=== PATIENT | male | born 1985 | race African-American/Black ===

== ENCOUNTER 2016-11-23 12:25 | Inpatient (IN) | payer OTHER ==
[~2016-11-23] VITALS: Ht 170.2 cm; Wt 60.0 kg
[2016-11-23 12:31] VITALS: BP 155/67; PULSE 94; RESP 18; TEMP 102.9; O2SAT 100
[2016-11-23] MEDS ORDERED: ACETAMINOPHEN 325 MG TAB PO ONE (13:00)
[2016-11-23] MEDS ORDERED: SODIUM CHLOR 0.9% 1000 ML INJ 1,000 ML IV ONE (13:00)
[2016-11-23 13:37] LABS: AUTOMATED NEUTROPHIL # 1.8 TH/MM3 (1.8-7.7); BASOPHIL % 0.4 % (0.0-2.0); EOSINOPHIL % 0.3 % (0.0-4.0); HEMATOCRIT 36.3 % (39.0-51.0); LYMPH % 29.6 % (9.0-44.0); LYMPHOCYTE # 1.1 TH/MM3 (1.0-4.8); MEAN CORPUSCULAR HGB CONC 33.3 % (32.0-36.0); MONO % 19.7 % (0.0-8.0); PLATELET COUNT 56 TH/MM3 (150-450); RED BLOOD COUNT 4.04 MIL/MM3 (4.50-5.90); WHITE BLOOD COUNT 3.6 TH/MM3 (4.0-11.0)
[2016-11-23 13:47] VITALS: O2SAT 99
[2016-11-23 13:48] LABS: APTT (PATIENT) 31.4 SEC (24.3-30.1); PROTHROMBIN TIME - PATIENT 11.3 SEC (9.8-11.6)
[2016-11-23 13:50] LABS: HEMO FLAGS AUTO DIFF
--- NOTE | 2016-11-23 13:57 | PD ---
HPI Chief Complaint: Fever Time Seen by Provider: 12:42 Travel History International Travel<30 days: Yes Contact w/Intl Traveler<30days: Yes Name of Country Traveled to: [place] Traveled to known affect area: No History of Present Illness HPI 31-year-old male to presents to the ED for evaluation of fever and possible malaria. Patient has a history of recent travel to [place] and was there for 5 weeks. Patient started having symptoms about 3 days after coming here having fever, body aches and headache. Per patient he was an endemic area and she was told by his father who is a doctor at that he might have malaria and needed to be checked and treated for it. She does state that he's had malaria in the past and has similar symptoms. Per patient his main symptoms are headache, body aches, fevers, chills. No cough or runny nose. No sick contacts. Denies any nausea or vomiting. No bowel movement or urinary symptoms. No abdominal pain. No numbness, tilling, weakness. Denies any other medical issues like HIV or immunosuppression. Has no allergies to medication. Has not seen anybody for this. He states that he lives in [place]. [facility] Past Medical History Medical other: Yes (hx malaria) Past Surgical History Surgical History: No Previous Surgery Social History Alcohol Use: No Tobacco Use: No Substance Use: No Allergies-Medications (Allergen,Severity, Reaction): Coded Allergies: No Known Allergies (Unverified , 11/23/16) Review of Systems Except as stated in HPI: all other systems reviewed are Neg Physical Exam Narrative GENERAL: SKIN: Warm and dry. HEAD: Atraumatic. Normocephalic. EYES: Pupils equal and round. No scleral icterus. No injection or drainage. ENT: No nasal bleeding or discharge. Mucous membranes pink and moist. Tongue is midline. No uvula deviation. NECK: Trachea midline. No JVD. No meningeal signs noted. CARDIOVASCULAR: Regular rate and rhythm. No murmurs, S3, S4. RESPIRATORY: No accessory muscle use. Clear to auscultation. Breath sounds equal bilaterally. GASTROINTESTINAL: Abdomen soft, non-tender, nondistended. Hepatic and splenic margins not palpable. MUSCULOSKELETAL: Extremities without clubbing, cyanosis, or edema. No obvious deformities. Full range of motion of the upper and lower extremities bilaterally. 2+ pulses bilaterally. NEUROLOGICAL: Awake and alert. No obvious cranial nerve deficits. Motor grossly within normal limits. Five out of 5 muscle strength in the arms and legs. Normal speech. Gait normal. Sensation intact bilaterally. PSYCHIATRIC: Appropriate mood and affect; insight and judgment normal. Data Data Last Documented VS Vital Signs Date Time Temp Pulse Resp B/P (MAP) Pulse Ox O2 Delivery O2 Flow Rate FiO2 11/23/16 13:47 99 Room Air 11/23/16 12:31 102.9 94 18 Orders Orders Complete Blood Count With Diff (11/23/16 12:47) Comprehensive Metabolic Panel (11/23/16 12:47) Blood Culture (11/23/16 12:47) Magnesium (Mg) (11/23/16 12:47) Influenzae A/B Antigen (11/23/16 12:47) Chest, Single Ap (11/23/16 12:47) Iv Access Insert/Monitor (11/23/16 12:47) Ecg Monitoring (11/23/16 12:47) Oximetry (11/23/16 12:47) Acetaminophen (Tylenol) (11/23/16 13:00) Sodium Chlor 0.9% 1000 Ml Inj (Ns 1000 M (11/23/16 13:00) Malaria (11/23/16 12:47) Coag Profile (11/23/16 12:55) Hydroxychloroquine (Plaquenil) (11/23/16 15:30) Admit Order (Ed Use Only) (11/23/16 15:25) Labs Laboratory Tests Test 11/23/16 13:05 White Blood Count 3.6 TH/MM3 Red Blood Count 4.04 MIL/MM3 Hemoglobin 12.1 GM/DL Hematocrit 36.3 % Mean Corpuscular Volume 90.0 FL Mean Corpuscular Hemoglobin 30.0 PG Mean Corpuscular Hemoglobin Concent 33.3 % Red Cell Distribution Width 14.0 % Platelet Count 56 TH/MM3 Mean Platelet Volume 10.9 FL Neutrophils (%) (Auto) 50.0 % Lymphocytes (%) (Auto) 29.6 % Monocytes (%) (Auto) 19.7 % Eosinophils (%) (Auto) 0.3 % Basophils (%) (Auto) 0.4 % Neutrophils # (Auto) 1.8 TH/MM3 Lymphocytes # (Auto) 1.1 TH/MM3 Monocytes # (Auto) 0.7 TH/MM3 Eosinophils # (Auto) 0.0 TH/MM3 Basophils # (Auto) 0.0 TH/MM3 CBC Comment AUTO DIFF Differential Total Cells Counted 100 Neutrophils % (Manual) 55 % Band Neutrophils % 3 % Lymphocytes % 19 % Monocytes % 21 % Basophils % 2 % Neutrophils # (Manual) 2.1 TH/MM3 Differential Comment FINAL DIFF MANUAL Platelet Estimate LOW Platelet Morphology Comment ENLARGED Red Cell Morphology Comment Prothrombin Time 11.3 SEC Prothromb Time International Ratio 1.0 RATIO Activated Partial Thromboplast Time 31.4 SEC Blood Urea Nitrogen 14 MG/DL Creatinine 0.81 MG/DL Random Glucose 110 MG/DL Total Protein 7.5 GM/DL Albumin 3.5 GM/DL Calcium Level 9.0 MG/DL Magnesium Level 1.9 MG/DL Alkaline Phosphatase 34 U/L Aspartate Amino Transf (AST/SGOT) 12 U/L Alanine Aminotransferase (ALT/SGPT) 13 U/L Total Bilirubin 1.0 MG/DL Sodium Level 135 MEQ/L Potassium Level 3.5 MEQ/L Chloride Level 100 MEQ/L Carbon Dioxide Level 27.1 MEQ/L Anion Gap 8 MEQ/L Estimat Glomerular Filtration Rate 113 ML/MIN MDM Medical Decision Making Medical Screen Exam Complete: Yes Emergency Medical Condition: Yes Medical Record Reviewed: Yes Interpretation(s) CBC & BMP Diagram 11/23/16 13:05 Total Protein 7.5, Albumin 3.5, Calcium Level 9.0, Magnesium Level 1.9, Alkaline Phosphatase 34 L, Aspartate Amino Transf (AST/SGOT) 12 L, Alanine Aminotransferase (ALT/SGPT) 13, Total Bilirubin 1.0 smear positive for malaria influenza negative CXR negative Differential Diagnosis Malaria versus URI versus viral illness versus pneumonia versus UTI versus tropical illness Narrative Course 31-year-old male to presents to the ED for evaluation of possible malaria. Patient was properly examined and was found to have signs and symptoms concerning for malaria. He does have a history of recent travel to an endemic area and has had earlier himself but states that he has the same symptoms. Patient mainly comes here for treatment. He has not taken anything for his fever today. He does not appear to have any meningeal signs at this time. Patient does appear to have a high fever and somewhat tachycardic. Labs and imaging were ordered. Patient was given IV fluids and Tylenol. Labs and imaging showed positive for malaria. What is accounting slightly low. I spoke with infectious disease who recommends starting her on chloroquine. Unfortunately we do not have the medication in the hospital so I made another call and he agrees to start him on doxycycline clean. This was discussed with the pharmacist who agrees with plan. First dose was ordered by me. Patient will be admitted to the hospital for observation as per up-to-date the recommend observation while being treated. Patient agrees with this plan. Case was discussed with my attending Dr. Saleem who agrees with plan. Patient will require another dose of hydroxychloroquine 400 mg in 6 hours, 24 hours, and 48 hours. Residents were paged and agreed with plan. Diagnosis Primary Impression: Malaria Admitting Information Admitting Physician Requests: Admit Silvio Henriquez Nov 23, 2016 13:57
[2016-11-23 14:07] LABS: ANION GAP 8 MEQ/L (5-15); AST (GOT) 12 U/L (15-37); BICARBONATE 27.1 MEQ/L (21.0-32.0); BLOOD UREA NITROGEN 14 MG/DL (7-18); CHLORIDE 100 MEQ/L (98-107); GLOMERULAR FILTRATION RATE 113 ML/MIN (>89); MAGNESIUM 1.9 MG/DL (1.5-2.5); POTASSIUM 3.5 MEQ/L (3.5-5.1); SODIUM (NA) 135 MEQ/L (136-145)
[2016-11-23 14:08] LABS: ALT (GPT) 13 U/L (12-78)
[2016-11-23 14:10] LABS: ALKALINE PHOSPHATASE 34 U/L (45-117)
[2016-11-23 14:35] LABS: BANDS 3 % (0-6); BASOPHILS 2 % (0-2); NEUTROPHIL # MANUAL DIFF 2.1 TH/MM3 (1.8-7.7); PLATELET ESTIMATE SMEAR LOW (NORMAL); PLATELET MORPHOLOGY ENLARGED (NORMAL); POLYS (SEG NEUTROPHILS) 55 % (16-70); SCAN/DIFF FINAL DIFF MANUAL; WBC DIFF SAMPLE 100
--- NOTE | 2016-11-23 14:49 | RADRPT ---
EXAM DATE/TIME: 11/23/2016 13:32 [facility] COMPARISON: No previous studies available for comparison. INDICATIONS : Malaria MEDICAL HISTORY : Malaria. SURGICAL HISTORY : None. ENCOUNTER: Initial ACUITY: 4 - 6 days PAIN SCORE: 6/10 LOCATION: Bilateral chest FINDINGS: A single view of the chest demonstrates the lungs to be symmetrically aerated without evidence of mas s, infiltrate or effusion. The cardiomediastinal contours are unremarkable. Osseous structures are intact. CONCLUSION: 1. No acute cardiopulmonary disease. Brice Ruiz MD on November 23, 2016 at 14:47 Board Certified Radiologist. This report was verified electronically.
[2016-11-23] MEDS ORDERED: HYDROXYCHLOROQUINE SULFATE 200 MG TAB PO ONE (15:30)
--- NOTE | 2016-11-23 15:38 | PD ---
Data Data Last Documented VS Vital Signs Date Time Temp Pulse Resp B/P (MAP) Pulse Ox O2 Delivery O2 Flow Rate FiO2 11/23/16 13:47 99 Room Air 11/23/16 12:31 102.9 94 18 Orders Orders Complete Blood Count With Diff (11/23/16 12:47) Comprehensive Metabolic Panel (11/23/16 12:47) Blood Culture (11/23/16 12:47) Magnesium (Mg) (11/23/16 12:47) Influenzae A/B Antigen (11/23/16 12:47) Chest, Single Ap (11/23/16 12:47) Iv Access Insert/Monitor (11/23/16 12:47) Ecg Monitoring (11/23/16 12:47) Oximetry (11/23/16 12:47) Acetaminophen (Tylenol) (11/23/16 13:00) Sodium Chlor 0.9% 1000 Ml Inj (Ns 1000 M (11/23/16 13:00) Malaria (11/23/16 12:47) Coag Profile (11/23/16 12:55) Hydroxychloroquine (Plaquenil) (11/23/16 15:30) Admit Order (Ed Use Only) (11/23/16 15:25) Labs Laboratory Tests Test 11/23/16 13:05 White Blood Count 3.6 TH/MM3 Red Blood Count 4.04 MIL/MM3 Hemoglobin 12.1 GM/DL Hematocrit 36.3 % Mean Corpuscular Volume 90.0 FL Mean Corpuscular Hemoglobin 30.0 PG Mean Corpuscular Hemoglobin Concent 33.3 % Red Cell Distribution Width 14.0 % Platelet Count 56 TH/MM3 Mean Platelet Volume 10.9 FL Neutrophils (%) (Auto) 50.0 % Lymphocytes (%) (Auto) 29.6 % Monocytes (%) (Auto) 19.7 % Eosinophils (%) (Auto) 0.3 % Basophils (%) (Auto) 0.4 % Neutrophils # (Auto) 1.8 TH/MM3 Lymphocytes # (Auto) 1.1 TH/MM3 Monocytes # (Auto) 0.7 TH/MM3 Eosinophils # (Auto) 0.0 TH/MM3 Basophils # (Auto) 0.0 TH/MM3 CBC Comment AUTO DIFF Differential Total Cells Counted 100 Neutrophils % (Manual) 55 % Band Neutrophils % 3 % Lymphocytes % 19 % Monocytes % 21 % Basophils % 2 % Neutrophils # (Manual) 2.1 TH/MM3 Differential Comment FINAL DIFF MANUAL Platelet Estimate LOW Platelet Morphology Comment ENLARGED Red Cell Morphology Comment Prothrombin Time 11.3 SEC Prothromb Time International Ratio 1.0 RATIO Activated Partial Thromboplast Time 31.4 SEC Blood Urea Nitrogen 14 MG/DL Creatinine 0.81 MG/DL Random Glucose 110 MG/DL Total Protein 7.5 GM/DL Albumin 3.5 GM/DL Calcium Level 9.0 MG/DL Magnesium Level 1.9 MG/DL Alkaline Phosphatase 34 U/L Aspartate Amino Transf (AST/SGOT) 12 U/L Alanine Aminotransferase (ALT/SGPT) 13 U/L Total Bilirubin 1.0 MG/DL Sodium Level 135 MEQ/L Potassium Level 3.5 MEQ/L Chloride Level 100 MEQ/L Carbon Dioxide Level 27.1 MEQ/L Anion Gap 8 MEQ/L Estimat Glomerular Filtration Rate 113 ML/MIN MDM Supervised Visit with MARY: Yes Narrative Course The history, exam, and medical decision-making in the associated midlevel provider note were completed with my assistance. I reviewed and agree with the findings presented. I attest that I had a [id number] encounter with the patient on the same day, and personally performed and documented my assessment and findings in the medical record. *My assessment and Findings: This is a 31-year-old male who presents to the emergency department with fevers, chills, malaise and headaches. He recently returned from [place]. His blood work was positive for malaria. He will be admitted to the hospital he was started on hydroxychloroquine. We discussed the case with infectious disease multiple times. Patient appears well on exam currently. Diagnosis Primary Impression: Malaria Suyapa Saleem MD Nov 23, 2016 15:38
[2016-11-23 17:22] VITALS: BP 136/78
[2016-11-23 17:44] VITALS: BP 112/58; PULSE 66; RESP 18; TEMP 98.8; O2SAT 100
[2016-11-23] MEDS ORDERED: ONDANSETRON HCL 4 MG/2 ML VIAL IVP PRN (18:45)
[2016-11-23] MEDS ORDERED: SODIUM CHLORIDE 0.9% FLUSH 10 ML FLUSH IV FLUSH PRN (18:45)
[2016-11-23] MEDS ORDERED: NALOXONE HCL 0.4 MG/ML AMP IV PUSH PRN (18:45)
[2016-11-23] MEDS ORDERED: ACETAMINOPHEN 325 MG TAB PO PRN (18:45)
--- NOTE | 2016-11-23 19:36 | HHI.HP ---
HPI Service Family Medicine Primary Care Physician No Primary Care Physician Admission Diagnosis malaria Diagnoses: International Travel<30 Days: Yes Contact w/Intl Traveler<30days: Yes Name of Country Traveled to: [facility] Known Affected Area: No History of Present Illness Placido Pelaez is a very pleasant 31 year old man who is previously healthy presenting with complaints of headaches, malaise, fatigue, intermittent subjective fevers and chills, and poor appetite. He states he recently returned from [place] about a week ago. He was there for about 5 weeks. He states about 3 days after returning he started noticing his symptoms. Overall his symptoms have not improved. He discussed his symptoms with his father who is a physician who said he might have malaria and recommended he be evaluated for this. He is found to be positive for malaria on a blood smear. He otherwise denies chest pain, SOB, cough, abdominal pain, any urinary symptoms. He states he is ambulating without difficulty. He denies having sickle cell disease or trait and denies a FH of this. (Brennen Banuelos MD R2) Review of Systems Constitutional: COMPLAINS OF: Fatigue, Fever, Chills, Change in appetite Eyes: DENIES: Blurred vision Respiratory: DENIES: Cough, Wheezing, Sputum production, Shortness of breath Cardiovascular: DENIES: Chest pain, Palpitations Gastrointestinal: DENIES: Abdominal pain, Black stools, Bloody stools, Constipation, Diarrhea, Nausea, Vomiting Genitourinary: DENIES: Hematuria, Dysuria Musculoskeletal: DENIES: Muscle aches Neurologic: COMPLAINS OF: Headache (Brennen Banuelos MD R2) Past Family Social History Past Medical History Previously healthy Past Surgical History Denies (Brennen Banuelos MD R2) Allergies: Coded Allergies: No Known Allergies (Unverified , 11/23/16) Family History Mother and Father healthy per pt Social History Tobacco: denies Etoh: social occasions only Illicit drug use: denies Lives in [facility] with his friend (Brennen Banuelos MD R2) Physical Exam Vital Signs Vital Signs Date Time Temp Pulse Resp B/P (MAP) Pulse Ox O2 Delivery O2 Flow Rate FiO2 11/23/16 17:44 98.8 66 18 112/58 (76) 100 11/23/16 17:22 86 18 136/78 (97) 99 11/23/16 17:20 18 11/23/16 13:47 99 Room Air 11/23/16 12:31 102.9 94 18 155/67 (96) 100 Physical Exam GENERAL: NAD, lying comfortably in bed NEURO: Alert. Normal speech. cook cold meat grossly intact. Motor grossly normal. SKIN: Warm and dry. No rashes or erythema. HEAD: Normocephalic. Atraumatic. EYES: EOMI. No scleral icterus. No injection or drainage. ENT: No nasal drainage. Moist mucous membranes. No oral ulcers or lesions. NECK: Supple, trachea midline. No JVD or lymphadenopathy. CARDIOVASCULAR: Regular rate and rhythm without murmurs, rubs, or gallops. Peripheral pulses 2+. Capillary refill < 2 seconds. RESPIRATORY: Breath sounds clear to auscultation and equal bilaterally, without wheezes, rales, or rhonchi. No accessory muscle use. GASTROINTESTINAL: Abdomen soft, nontender, nondistended, normal BS. No HSM or masses. No rebound tenderness. No guarding. MUSCULOSKELETAL: No lower extremity edema. Normal range of motion. BACK: Nontender without obvious deformity. Laboratory Laboratory Tests Test 11/23/16 13:05 White Blood Count 3.6 Red Blood Count 4.04 Hemoglobin 12.1 Hematocrit 36.3 Mean Corpuscular Volume 90.0 Mean Corpuscular Hemoglobin 30.0 Mean Corpuscular Hemoglobin Concent 33.3 Red Cell Distribution Width 14.0 Platelet Count 56 Mean Platelet Volume 10.9 Neutrophils (%) (Auto) 50.0 Lymphocytes (%) (Auto) 29.6 Monocytes (%) (Auto) 19.7 Eosinophils (%) (Auto) 0.3 Basophils (%) (Auto) 0.4 Neutrophils # (Auto) 1.8 Lymphocytes # (Auto) 1.1 Monocytes # (Auto) 0.7 Eosinophils # (Auto) 0.0 Basophils # (Auto) 0.0 CBC Comment AUTO DIFF Differential Total Cells Counted 100 Neutrophils % (Manual) 55 Band Neutrophils % 3 Lymphocytes % 19 Monocytes % 21 Basophils % 2 Neutrophils # (Manual) 2.1 Differential Comment FINAL DIFF MANUAL Platelet Estimate LOW Platelet Morphology Comment ENLARGED Red Cell Morphology Comment Prothrombin Time 11.3 Prothromb Time International Ratio 1.0 Activated Partial Thromboplast Time 31.4 Blood Urea Nitrogen 14 Creatinine 0.81 Random Glucose 110 Total Protein 7.5 Albumin 3.5 Calcium Level 9.0 Magnesium Level 1.9 Alkaline Phosphatase 34 Aspartate Amino Transf (AST/SGOT) 12 Alanine Aminotransferase (ALT/SGPT) 13 Total Bilirubin 1.0 Sodium Level 135 Potassium Level 3.5 Chloride Level 100 Carbon Dioxide Level 27.1 Anion Gap 8 Estimat Glomerular Filtration Rate 113 Date/Time Source Procedure Growth Status 11/23/16 13:10 Blood Peripheral Aerobic Blood Culture Pending Received 11/23/16 13:10 Blood Peripheral Anaerobic Blood Culture Pending Received 11/23/16 14:00 Nasal Washing Influenza Types A,B Antigen (JANNA) - Final NEGATIVE FOR FLU A AND B ANTIGEN.... Complete (Brennen Banuelos MD R2) Result Diagram: 11/23/16 1305 11/23/16 1305 Septic Shock Reassessment Heart: Regular rate and rhythm Lungs: Clear Skin: Warm, Dry Peripheral Pulses: Bounding Right Radial Bounding Left Radial Bounding Right Dorsalis Pedis Bounding Left Dorsalis Pedis Bounding Right Posterior Tibial Bounding Left Posterior Tibial Capillary Refill: <2 seconds (Brennen Banuelos MD R2) Caprini VTE Risk Assessment Caprini VTE Risk Assessment: No/Low Risk (score <= 1) Caprini Risk Assessment Model Point Value = 1 Point Value = 2 Point Value = 3 Point Value = 5 Age 41-60 Minor surgery BMI > 25 kg/m2 Swollen legs Varicose veins or History of unexplained or recurrent spontaneous Oral contraceptives or hormone replacement Sepsis (< 1 month) Serious lung disease, including pneumonia (< 1 month) Abnormal pulmonary function Acute myocardial infarction Congestive heart failure (< 1 month) History of inflammatory bowel disease Medical patient at bed rest Age 61-74 Arthroscopic surgery Major open surgery (> 45 min) Laparoscopic surgery (> 45 min) Malignancy Confined to bed (> 72 hours) Immobilizing plaster cast Central venous access Age >= 75 History of VTE Family history of VTE Factor V Leiden Prothrombin [id number] Lupus anticoagulant Anticardiolipin antibodies Elevated serum homocysteine Heparin-induced thrombocytopenia Other congenital or acquired thrombophilia Stroke (< 1 month) Elective arthroplasty Hip, pelvis, or leg fracture Acute spinal cord injury (< 1 month) Prophylaxis Regimen Total Risk Factor Score Risk Level Prophylaxis Regimen 0-1 Low Early ambulation 2 Moderate Order ONE of the following: *Sequential Compression Device (SCD) *Heparin 5000 units SQ BID 3-4 Higher Order ONE of the following medications: *Heparin 5000 units SQ TID *Enoxaparin/Lovenox 40 mg SQ daily (WT < 150 kg, CrCl > 30 mL/min) *Enoxaparin/Lovenox 30 mg SQ daily (WT < 150 kg, CrCl > 10-29 mL/min) *Enoxaparin/Lovenox 30 mg SQ BID (WT < 150 kg, CrCl > 30 mL/min) AND/OR *Sequential Compression Device (SCD) 5 or more Highest Order ONE of the following medications: *Heparin 5000 units SQ TID (Preferred with Epidurals) *Enoxaparin/Lovenox 40 mg SQ daily (WT < 150 kg, CrCl > 30 mL/min) *Enoxaparin/Lovenox 30 mg SQ daily (WT < 150 kg, CrCl > 10-29 mL/min) *Enoxaparin/Lovenox 30 mg SQ BID (WT < 150 kg, CrCl > 30 mL/min) AND *Sequential Compression Device (SCD) (Brennen Banuelos MD R2) Assessment and Plan Assessment and Plan Very pleasant 31 year old man being admitted for management of malaria. Code Status Full code Discussed Condition With Dr. Stratton (Brennen Banuelos MD R2) Attending Attestation THIS CASE WAS DISCUSSED WITH THE RESIDENT PHYSICIANS. I HAVE REVIEWED THE RECORD AND AGREE WITH THE ABOVE NOTE AND PLAN OF CARE WAS DISCUSSED. I HAVE AUTHORIZED THE ORDER FOR ADMISSION TO AN IN-PATIENT STATUS. (Lizzeth Reyes MD) Problem List: (1) Malaria ICD Codes: B54 - Unspecified malaria Status: Acute Plan: Patient found to be positive for malaria on blood smear ID consulted, recommending starting patient on Plaquenil 800 mg now followed by 400 mg at 6, 24, and 48 hours Start NS at 100 cc/hr CXR showing no acute disease (2) Headache ICD Codes: R51 - Headache Status: Acute Plan: Tylenol 650 mg po q4h prn Consider alternate agent if headache is not responsive to Tylenol (3) Anemia ICD Codes: D64.9 - Anemia, unspecified Status: Acute Plan: Hgb on admission 12.1, continue to monitor (4) Nutrition, metabolism, and development symptoms ICD Codes: R63.8 - Other symptoms and signs concerning food and fluid intake Plan: Fluids: NS at 100 cc/hr Electrolytes: Na 135, lytes otherwise WNL, continue to monitor Diet: Regular (Brennen Banuelos MD R2) Physician Certification 2 Midnight Certification Type: Admission for Inpatient Services Order for Inpatient Services The services are ordered in accordance with Medicare regulations or non- Medicare payer requirements, as applicable. In the case of services not specified as inpatient-only, they are appropriately provided as inpatient services in accordance with the 2-midnight benchmark. Estimated LOS (days): 2 days is the estimated time the patient will need to remain in the hospital, assuming treatment plan goals are met and no additional complications. Post-Hospital Plan: Home (Brennen Banuelos MD R2) 2 Midnight Certification Type: Admission for Inpatient Services Post-Hospital Plan: Home (Lizzeth Reyes MD) Brennen Banuelos MD R2 Nov 23, 2016 19:36 Lizzeth Reyes MD Nov 24, 2016 13:31
[2016-11-23 20:00] VITALS: BP 119/56; PULSE 75; RESP 18; TEMP 98.2; O2SAT 97
[2016-11-23] MEDS ORDERED: ENOXAPARIN SODIUM 40 MG/0.4 ML SYRINGE SQ SCH (20:00)
[2016-11-23] MEDS: SODIUM CHLORIDE 0.9% FLUSH 10 ML FLUSH IV FLUSH SCH (21:00)
[2016-11-23] MEDS: SODIUM CHLOR 0.9% 1000 ML INJ 1,000 ML IV SCH (21:01)
[2016-11-23 21:04] VITALS: O2SAT 99
[2016-11-24] VITALS (7 sets, daily range): BP systolic 98–121; BP diastolic 52–68; PULSE 60–73; RESP 16–18; TEMP 97.8–98.6; O2SAT 98–100
[2016-11-24] MEDS ORDERED: HYDROXYCHLOROQUINE SULFATE 200 MG TAB PO ONE ×2 (00:01→18:00)
[2016-11-24] MEDS: SODIUM CHLOR 0.9% 1000 ML INJ 1,000 ML IV SCH ×2 (05:29→16:02)
[2016-11-24 06:10] LABS: AUTOMATED NEUTROPHIL # 0.8 TH/MM3 (1.8-7.7); BASOPHIL % 0.5 % (0.0-2.0); EOSINOPHIL # 0.1 TH/MM3 (0-0.4); EOSINOPHIL % 1.3 % (0.0-4.0); HEMATOCRIT 34.7 % (39.0-51.0); LYMPH % 53.6 % (9.0-44.0); LYMPHOCYTE # 2.2 TH/MM3 (1.0-4.8); MEAN CELL VOLUME 90.4 FL (80.0-100.0); MEAN CORPUSCULAR HEMOGLOBIN 30.2 PG (27.0-34.0); MEAN CORPUSCULAR HGB CONC 33.4 % (32.0-36.0); MONO % 25.6 % (0.0-8.0); PLATELET COUNT 70 TH/MM3 (150-450); RED BLOOD COUNT 3.84 MIL/MM3 (4.50-5.90); RED CELL DISTRIBUTION WIDTH 14.4 % (11.6-17.2); WHITE BLOOD COUNT 4.1 TH/MM3 (4.0-11.0)
[2016-11-24 06:17] LABS: HEMO FLAGS AUTO DIFF
[2016-11-24 06:41] LABS: BICARBONATE 27.5 MEQ/L (21.0-32.0)
[2016-11-24 06:43] LABS: POTASSIUM 4.7 MEQ/L (3.5-5.1)
[2016-11-24 07:08] LABS: EOSINOPHILS 3 % (0-4); POLYS (SEG NEUTROPHILS) 25 % (16-70); WBC DIFF SAMPLE 100
[2016-11-24 07:10] LABS: PLATELET ESTIMATE SMEAR LOW (NORMAL); PLATELET MORPHOLOGY ENLARGED (NORMAL); SCAN/DIFF FINAL DIFF MANUAL
[2016-11-24] MEDS: SODIUM CHLORIDE 0.9% FLUSH 10 ML FLUSH IV FLUSH SCH ×2 (09:00→20:57)
[2016-11-24] MEDS ORDERED: PNEUMOCOCCAL POLYVALENT INJ 25 MCG/0.5 ML SYR IM ONE (10:00)
[2016-11-24] MEDS ORDERED: INFLUENZA VIRUS VACCINE (QUADRIVALENT) 0.5 ML SYR IM ONE (10:00)
--- NOTE | 2016-11-24 13:05 | PD.CONS ---
History of Present Illness Service Infectious disease Consult Requested By Dr Banuelos Reason for Consult Evaluate patient with malaria Primary Care Physician No Primary Care Physician Diagnoses: History of Present Illness Patient seen and examined. Records reviewed. Patient is a 31-year-old male, originally from [facility], has been living here in the [facility] in the last 8 years, recently travel to [facility] and stayed there for about a 5 weeks. He returned November 13, and around November 26 started having problem with headaches, fevers, myalgias. However prior to that he was ready having problem with very poor appetite, and just feeling weak. He would occasionally get some chills. Patient on his visit did not take any prophylactic medication. He has visited [facility] probably 2 or 3 times since he has been a resident of the [facility]. He called his father who is a practicing physician in [facility], and the patient was instructed to go to the hospital for further evaluation and treatment. He had a 102.9 temperature on presentation. He had some pancytopenia when he presented. His LFTs did not show any elevated LFTs, and his creatinine is normal. The thin malaria smear of his blood came back positive for malaria, ring forms. The thick smear is still pending. Patient states his headache is a little bit better. He has been afebrile. WBCs little bit better. His platelet count had increased from 59 to 70. He has some mild coughing. Denies any shortness of breath or chest pain. Denies any nausea or vomiting, abdominal pain, urinary complaints, hematuria. Patient has received 2 doses of Plaquenil. Infectious disease consultation has been requested to evaluate the patient. Review of Systems Constitutional: COMPLAINS OF: Fatigue, Fever, Chills, Change in appetite, Night Sweats Eyes: DENIES: Eye pain Ears, nose, mouth, throat: DENIES: Nasal discharge, Oral lesions, Throat pain, Ear Pain, Sinus Pain Respiratory: COMPLAINS OF: Cough, DENIES: Sputum production, Shortness of breath Cardiovascular: DENIES: Chest pain, Palpitations, Syncope Gastrointestinal: DENIES: Abdominal pain, Bloody stools, Diarrhea, Nausea, Vomiting, Difficulty Swallowing Genitourinary: DENIES: Urgency, Hematuria, Dysuria Musculoskeletal: COMPLAINS OF: Joint pain, Muscle aches, DENIES: Joint Swelling Integumentary: DENIES: Rash Neurologic: COMPLAINS OF: Headache, DENIES: Localized weakness Psychiatric: DENIES: Hallucinations Past Family Social History Allergies: Coded Allergies: No Known Allergies (Unverified , 11/23/16) Past Medical History Unremarkable Past Surgical History None Reported Medications He is not taking any regular medication from home Active Ordered Medications Tylenol prn Plaquenil Zofran prn Family History Unremarkable Social History Single, originally from [place] Has been living here in the [place] since 2007 He has been studying in [employer] and ring into going into [employer] Denies smoking Occasionally drinks alcohol Denies illicit drugs Physical Exam Vital Signs Vital Signs Date Time Temp Pulse Resp B/P (MAP) Pulse Ox O2 Delivery O2 Flow Rate FiO2 11/24/16 08:42 100 11/24/16 08:00 98.4 63 18 121/68 (85) 99 11/24/16 07:15 Room Air 11/24/16 04:00 Room Air 11/24/16 04:00 97.8 70 16 109/52 (71) 100 11/24/16 00:00 98.4 73 18 98/53 (68) 100 11/24/16 00:00 Room Air 11/23/16 21:04 99 21 11/23/16 20:00 98.2 75 18 119/56 (77) 97 11/23/16 20:00 Room Air 11/23/16 17:44 98.8 66 18 112/58 (76) 100 11/23/16 17:22 86 18 136/78 (97) 99 11/23/16 17:20 18 11/23/16 13:47 99 Room Air Physical Exam GENERAL: Patient is a well-nourished, well-developed male, awake and alert, not in respiratory distress. He does not look toxic appearing SKIN: Warm and dry. No generalized rash, no ecchymoses and no evidence of embolic lesions. HEAD: Atraumatic. Normocephalic. No temporal wasting, or tenderness. EYES: [place] conjunctiva. No petechia or hemorrhage. Pupils equal, round and reactive to light. Extraocular movements full and intact. No scleral icterus. No injection or drainage. EARS, NOSE AND THROAT: Nose without bleeding or purulent nasal discharge. No sinus tenderness. Mucous membranes pink and moist. No oral lesions noted. No exudate. No oral thrush. NECK: Trachea midline. Supple and not tender, no meningeal signs CARDIOVASCULAR: Regular rate and rhythm. No murmurs, rubs or gallops heard RESPIRATORY: Clear to auscultation. Breath sounds equal bilaterally. No rales , wheezing or rhonchi ABDOMEN: Soft, non-tender, nondistended. Bowel sounds present and normoactive. No guarding. No rebound. No organomegaly. EXTREMITIES: No clubbing, cyanosis, or edema.No joint effusion, has good ROM. No calf tenderness. Well perfused and warm. NEUROLOGICAL: Awake and alert. Cranial nerves grossly intact. Motor grossly within normal limits. PSYCHIATRIC: Normal affect, calm and cooperative. LINE: No evidence of infection Laboratory Laboratory Tests Test 11/23/16 13:05 11/24/16 05:50 White Blood Count 3.6 4.1 Red Blood Count 4.04 3.84 Hemoglobin 12.1 11.6 Hematocrit 36.3 34.7 Mean Corpuscular Volume 90.0 90.4 Mean Corpuscular Hemoglobin 30.0 30.2 Mean Corpuscular Hemoglobin Concent 33.3 33.4 Red Cell Distribution Width 14.0 14.4 Platelet Count 56 70 Mean Platelet Volume 10.9 10.9 Neutrophils (%) (Auto) 50.0 19.0 Lymphocytes (%) (Auto) 29.6 53.6 Monocytes (%) (Auto) 19.7 25.6 Eosinophils (%) (Auto) 0.3 1.3 Basophils (%) (Auto) 0.4 0.5 Neutrophils # (Auto) 1.8 0.8 Lymphocytes # (Auto) 1.1 2.2 Monocytes # (Auto) 0.7 1.1 Eosinophils # (Auto) 0.0 0.1 Basophils # (Auto) 0.0 0.0 CBC Comment AUTO DIFF AUTO DIFF Differential Total Cells Counted 100 100 Neutrophils % (Manual) 55 25 Band Neutrophils % 3 Lymphocytes % 19 56 Monocytes % 21 16 Basophils % 2 Neutrophils # (Manual) 2.1 1.0 Differential Comment FINAL DIFF MANUAL FINAL DIFF MANUAL Platelet Estimate LOW LOW Platelet Morphology Comment ENLARGED ENLARGED Red Cell Morphology Comment Prothrombin Time 11.3 Prothromb Time International Ratio 1.0 Activated Partial Thromboplast Time 31.4 Blood Urea Nitrogen 14 13 Creatinine 0.81 0.67 Random Glucose 110 90 Total Protein 7.5 Albumin 3.5 Calcium Level 9.0 8.5 Magnesium Level 1.9 Alkaline Phosphatase 34 Aspartate Amino Transf (AST/SGOT) 12 Alanine Aminotransferase (ALT/SGPT) 13 Total Bilirubin 1.0 Sodium Level 135 142 Potassium Level 3.5 4.7 Chloride Level 100 109 Carbon Dioxide Level 27.1 27.5 Anion Gap 8 6 Estimat Glomerular Filtration Rate 113 170 Eosinophils % 3 Date/Time Source Procedure Growth Status 11/23/16 13:10 Blood Peripheral Aerobic Blood Culture - Preliminary NO GROWTH IN 1 DAY Resulted 11/23/16 13:10 Blood Peripheral Anaerobic Blood Culture - Preliminary NO GROWTH IN 1 DAY Resulted 11/23/16 14:00 Nasal Washing Influenza Types A,B Antigen (JANNA) - Final NEGATIVE FOR FLU A AND B ANTIGEN.... Complete Result Diagram: 11/24/16 0550 11/24/16 0550 Imaging Last Impressions Chest X-Ray 11/23/16 1247 Signed Impressions: Service Date/Time: Wednesday, November 23, 2016 13:32 - CONCLUSION: 1. No acute cardiopulmonary disease. Brice Ruiz MD Assessment and Plan Assessment and Plan IMPRESSION Malaria from a returning traveler from [place] - has known Chloroquine resistant falciparum - has thrombocytopenia, anemia and neutropenia RECOMMENDATION Qunine plus Doxy If with possible P vivax, will need Primaquine Check DIC screen and lactic acid Await ID of Malaria Repeat CBC and CMP, and follow Monitor progress I will follow along with you Thank you for this consultation Discussed Condition With Explained plan to the patient Audelia Cerda MD Nov 24, 2016 13:05
--- NOTE | 2016-11-24 14:15 | HHI.FPPN ---
Problem Problem List: (1) Malaria (2) Thrombocytopenia (3) Hyponatremia (4) Anemia (5) Headache Subjective Subjective 31-year-old male, originally from [facility],living in the [facility] in the last 8 years, with recent travel to [place].. He returned November 13, and around November 26 started having headaches, fevers, myalgias, poor appetite, and just feeling weak. He was in [place] for a wedding and states he did not think about taking malaria prophylaxis. On admission - mild anemia with some thrombocytopenia but liver/kidney function ok. Patient was admitted with the diagnosis of malaria and placed on plaquenil. Patient at the time of the interview today feels markedly better and back to his normal self. Denies headache, fever, chills, has eaten his entire breakfast. Review of Systems negative except as above Past Family Social History PMH/PSH/Allergies -- NONE Reported Medications He is not taking any regular medication from home Family History Unremarkable Social History Single, originally from [facility], no tobacco or illicits, occ ETOH Has been living here in the [facility] since 2007 [facility] Objective Objective Laboratory Tests - Abnormals Test 11/24/16 05:50 Red Blood Count 3.84 MIL/MM3 Hemoglobin 11.6 GM/DL Hematocrit 34.7 % Platelet Count 70 TH/MM3 Lymphocytes (%) (Auto) 53.6 % Monocytes (%) (Auto) 25.6 % Neutrophils # (Auto) 0.8 TH/MM3 Monocytes # (Auto) 1.1 TH/MM3 Lymphocytes % 56 % Monocytes % 16 % Neutrophils # (Manual) 1.0 TH/MM3 Platelet Estimate LOW Platelet Morphology Comment ENLARGED Chloride Level 109 MEQ/L Vital Signs 11/23/16 11/23/16 11/23/16 11/23/16 17:20 17:22 17:44 20:00 Temp 98.8 Pulse 86 66 Resp 18 18 18 B/P (MAP) 136/78 (97) 112/58 (76) Pulse Ox 99 100 O2 Delivery Room Air 11/23/16 11/23/16 11/24/16 11/24/16 20:00 21:04 00:00 00:00 Temp 98.2 98.4 Pulse 75 73 Resp 18 18 B/P (MAP) 119/56 (77) 98/53 (68) Pulse Ox 97 99 100 O2 Delivery Room Air FiO2 21 10/11/24/16 11/24/16 11/24/16 04:00 04:00 07:15 08:00 Temp 97.8 98.4 Pulse 70 63 Resp 16 18 B/P (MAP) 109/52 (71) 121/68 (85) Pulse Ox 100 99 O2 Delivery Room Air Room Air 11/24/16 11/24/16 08:42 12:00 Temp 98.6 Pulse 63 Resp 18 B/P (MAP) 117/63 (81) Pulse Ox 100 99 Physical exam O. CONSTITUTIONAL/GEN: normally nourished, in NAD. EYES: conjunctiva normal, PERRLA, EOMI. ENT: Mouth and pharynx normal. NECK: thyroid midline, carotids symmetrical. LUNGS: clear A-P, respiratory effort is normal. CARDIOVASCULAR: RR without murmur or gallop. No significant edema. GI/ABD: soft without masses, without organomegaly. : no CVA tenderness NEURO: No focal deficits. Gait is normal SKIN: color normal, no rashes noted. HEME/LYMPH: no bruising, petechia or significant adenopathy MUSC: back is normal in appearance. Extremities are normal in appearance. PSYCH/MENTAL STATUS: Alert and oriented x 3. Assessment Assessment: (1) Malaria (2) Anemia (3) Headache (4) Hyponatremia (5) Thrombocytopenia Assessment 31 year old healthy male with malaria that has improved since admission. Thus far appears stable but workup is still pending. ID has been consulted to assist with this case PLAN PLAN Due to the chloroquine resistance in [place] -- ID has added treatment regimen of Quinine and Doxy final identification of the type of the malaria is still pending. Trend labs to monitor liver/kidney function and CBC. Patient was seen and dw with the resident team - Dr. Banuelos, Dr. Stratton, Dr. Karma Reyes,Lizzeth Puckett MD Nov 24, 2016 14:15
[2016-11-24] MEDS: DOXYCYCLINE HYCLATE 100 MG TAB PO SCH ×2 (15:56→20:56)
[2016-11-24] MEDS ORDERED: diphenhydrAMINE HCL 50 MG/ML VIAL IV PUSH PRN (16:15)
[2016-11-25] VITALS: BP 101/59; PULSE 87; RESP 18; TEMP 98.4; O2SAT 98
[2016-11-25] MEDS: SODIUM CHLOR 0.9% 1000 ML INJ 1,000 ML IV SCH ×2 (01:56→11:12)
[2016-11-25 04:00] VITALS: BP 113/54; PULSE 65; RESP 18; TEMP 98.8; O2SAT 100
[2016-11-25 08:00] VITALS: BP 131/67; PULSE 63; RESP 18; TEMP 98.6; O2SAT 98
[2016-11-25 08:21] LABS: HEMATOCRIT 32.4 % (39.0-51.0); MEAN CELL VOLUME 90.1 FL (80.0-100.0); MEAN CORPUSCULAR HEMOGLOBIN 29.4 PG (27.0-34.0); MEAN CORPUSCULAR HGB CONC 32.6 % (32.0-36.0); PLATELET COUNT 87 TH/MM3 (150-450); RED BLOOD COUNT 3.59 MIL/MM3 (4.50-5.90); RED CELL DISTRIBUTION WIDTH 14.2 % (11.6-17.2)
[2016-11-25 08:26] LABS: HEMO FLAGS AUTO DIFF
[2016-11-25 08:50] LABS: ANION GAP 7 MEQ/L (5-15); AST (GOT) 13 U/L (15-37); BLOOD UREA NITROGEN 9 MG/DL (7-18); CHLORIDE 108 MEQ/L (98-107); GLOMERULAR FILTRATION RATE 173 ML/MIN (>89); POTASSIUM 4.1 MEQ/L (3.5-5.1); SODIUM (NA) 141 MEQ/L (136-145)
[2016-11-25 08:52] LABS: ALT (GPT) 17 U/L (12-78)
[2016-11-25 08:54] LABS: ALKALINE PHOSPHATASE 27 U/L (45-117); TOTAL BILIRUBIN ADULT 0.4 MG/DL (0.2-1.0)
[2016-11-25 09:10] LABS: BANDS 3 % (0-6); EOSINOPHILS 2 % (0-4); NEUTROPHIL # MANUAL DIFF 2.3 TH/MM3 (1.8-7.7); POLYS (SEG NEUTROPHILS) 42 % (16-70); WBC DIFF SAMPLE 100
[2016-11-25 09:18] LABS: PLATELET ESTIMATE SMEAR LOW (NORMAL); PLATELET MORPHOLOGY ENLARGED (NORMAL)
[2016-11-25 09:19] LABS: OVALOCYTES 1+ (NORMAL)
[2016-11-25 09:38] LABS: SCAN/DIFF FINAL DIFF MANUAL
[2016-11-25] MEDS: DOXYCYCLINE HYCLATE 100 MG TAB PO SCH ×2 (10:07→21:02)
[2016-11-25] MEDS: guaiFENesin/CODEINE SYRUP 200 MG/20 MG/10 ML CUP PO PRN ×2 (10:07→17:13)
[2016-11-25] MEDS: SODIUM CHLORIDE 0.9% FLUSH 10 ML FLUSH IV FLUSH SCH ×2 (10:08→21:03)
[2016-11-25 12:00] VITALS: BP 131/64; PULSE 84; RESP 18; TEMP 98.4; O2SAT 96
--- NOTE | 2016-11-25 12:11 | HHI.FPPN ---
Subjective Remarks Patient was afebrile overnight. Adequate intake and output. Denies any pain, chest pain, shortness of breath. Endorses a cough, describes it as coming from his chest. Would like cough medicine. Was experiencing itchy skin yesterday, has improved significantly today since starting IV Benadryl. (Tracy Stratton MD R1) Objective Vitals Vital Signs Date Time Temp Pulse Resp B/P (MAP) Pulse Ox O2 Delivery O2 Flow Rate FiO2 11/25/16 08:00 98.6 63 18 131/67 (88) 98 11/25/16 07:15 Room Air 11/25/16 04:00 Room Air 11/25/16 04:00 98.8 65 18 113/54 (73) 100 11/25/16 00:00 Room Air 11/25/16 00:00 98.4 87 18 101/59 (73) 98 11/24/16 20:00 Room Air 11/24/16 20:00 98.2 60 18 114/56 (75) 98 11/24/16 16:00 97.9 65 18 112/58 (76) 99 I/O 11/24/16 11/24/16 11/24/16 11/25/16 11/25/16 11/25/16 07:00 15:00 23:00 07:00 15:00 23:00 Intake Total 2233 ml 720 ml 600 ml 596 ml Output Total 1200 ml Balance 2233 ml 720 ml -600 ml 596 ml Intake Oral 360 ml 720 ml 600 ml IV Total 1873 ml 596 ml Output Urine Total 1200 ml # Voids 1 2 # Bowel Movements 0 0 0 (Tracy Stratton MD R1) Result Diagram: 11/25/1615 11/25/1615 Objective Remarks GENERAL: SKIN: Warm and dry. HEAD: Normocephalic. EYES: No scleral icterus. NECK: Supple, trachea midline. CARDIOVASCULAR: Regular rate and rhythm without murmurs, gallops, or rubs. RESPIRATORY: Breath sounds equal bilaterally. No crackles, wheezing, or rhonchi GASTROINTESTINAL: Abdomen soft, nondistended. MUSCULOSKELETAL: No cyanosis, or edema. (Tracy Stratton MD R1) A/P Assessment and Plan Very pleasant 31 year old man being admitted for management of malaria. (Tracy Stratton MD R1) Attending Attestation Patient seen and examined. Case reviewed and discussed with the resident team. Agree with plan of care as discussed with me and documented in the resident note. (Lizzeth Reyes MD) Problem List: (1) Malaria ICD Codes: B54 - Unspecified malaria Status: Acute Plan: Patient found to be positive for malaria on blood smear ID following Plaquenil day #3 400 mg X Doxycycline 100 mg daily Final report for malaria strain pending D/C IV fluids (2) Thrombocytopenia ICD Codes: D69.6 - Thrombocytopenia, unspecified Status: Acute Plan: Initially 56 on admission, secondary to malaria - improved today at 87 - will con't to monitor w/daily CBC (3) Anemia ICD Codes: D64.9 - Anemia, unspecified Status: Acute Plan: Normocytic Anemia, Hgb on admission 12.1 Hgb 10.6 (11.6), continue to monitor with daily CBC If Hgb<7, will transfuse as needed (4) Pruritus ICD Codes: L29.9 - Pruritus, unspecified Status: Acute Plan: Started 11/24, patient explains diffuse itching, no rash noted Likely secondary to hydroxychloroquine treatment -IV Benadryl when necessary for itching (5) Cough ICD Codes: R05 - Cough Plan: Dry, normal lung exam, started yesterday 11/24 Possibly secondary to hydroxychloroquine treatment -Guaifenesin when necessary (6) Nutrition, metabolism, and development symptoms ICD Codes: R63.8 - Other symptoms and signs concerning food and fluid intake Plan: Fluids: none Electrolytes: Na 135, lytes otherwise WNL, continue to monitor Diet: Regular DVT Prophy: not indicated, ambulatory (Tracy Stratton MD R1) Tracy Stratton MD R1 Nov 25, 2016 12:11 Lizzeth Reyes MD Nov 25, 2016 12:46
[2016-11-25] MEDS: QUININE PO SCH ×2 (12:57→17:13)
[2016-11-25] MEDS: [UNRECOGNIZED DRUG - OTHER] PO SCH ×2 (12:57→17:13)
[2016-11-25 16:00] VITALS: BP 130/76; PULSE 79; RESP 18; TEMP 98.4; O2SAT 98
[2016-11-25] MEDS ORDERED: HYDROXYCHLOROQUINE SULFATE 200 MG TAB PO ONE (18:00)
[2016-11-25 20:25] VITALS: BP 138/87; PULSE 68; RESP 19; TEMP 99.2; O2SAT 99
[2016-11-26 00:13] VITALS: BP 126/77; PULSE 76; RESP 19; TEMP 100.7; O2SAT 97
[2016-11-26 06:25] VITALS: BP 117/73; PULSE 63; RESP 18; TEMP 99.7; O2SAT 99
[2016-11-26 06:53] LABS: HEMATOCRIT 31.1 % (39.0-51.0); MEAN CELL VOLUME 89.3 FL (80.0-100.0); MEAN CORPUSCULAR HEMOGLOBIN 29.7 PG (27.0-34.0); MEAN CORPUSCULAR HGB CONC 33.3 % (32.0-36.0); PLATELET COUNT 132 TH/MM3 (150-450); RED BLOOD COUNT 3.48 MIL/MM3 (4.50-5.90); RED CELL DISTRIBUTION WIDTH 14.4 % (11.6-17.2); REVIEW FLAG FINAL; WHITE BLOOD COUNT 8.2 TH/MM3 (4.0-11.0)
[2016-11-26 08:02] VITALS: BP 108/64; PULSE 65; RESP 16; TEMP 99.3; O2SAT 98
[2016-11-26] MEDS: DOXYCYCLINE HYCLATE 100 MG TAB PO SCH (08:56)
[2016-11-26] MEDS: SODIUM CHLORIDE 0.9% FLUSH 10 ML FLUSH IV FLUSH SCH (08:58)
[2016-11-26] MEDS: QUININE PO SCH ×2 (08:58→12:47)
[2016-11-26] MEDS: [UNRECOGNIZED DRUG - OTHER] PO SCH ×2 (08:58→12:47)
[2016-11-26] MEDS: guaiFENesin/CODEINE SYRUP 200 MG/20 MG/10 ML CUP PO PRN (09:05)
--- NOTE | 2016-11-26 09:46 | HHI.FPPN ---
Subjective Remarks No acute events overnight. Tmax 100.7F overnight. Vitals otherwise WNL. Placido states he continues to have a dry, nonproductive cough intermittently throughout the day. He states the cough medicine started yesterday has only been helping a little. He states his cough has been causing some sore chest pain , CP is not crushing or radiating anywhere. He denies any chest pain when not coughing. He reports still having dull aching headaches and Tylenol has provided some relief for this but he asks for something stronger for his headaches. He otherwise does not have any complaints. He denies feeling feverish , denies SOB. Ambulating without difficulty. Tolerating diet well. (Brennen Banuelos MD R2) Objective Vitals Vital Signs Date Time Temp Pulse Resp B/P (MAP) Pulse Ox O2 Delivery O2 Flow Rate FiO2 11/26/16 08:02 99.3 65 16 108/64 (79) 98 11/26/16 06:25 99.7 63 18 117/73 (88) 99 11/26/16 00:13 100.7 76 19 126/77 (93) 97 11/25/16 22:00 Room Air 11/25/16 20:25 99.2 68 19 138/87 (104) 99 11/25/16 16:00 98.4 79 18 130/76 (94) 98 11/25/16 12:00 98.4 84 18 131/64 (86) 96 I/O 11/25/16 11/25/16 11/25/16 11/26/16 11/26/16 11/26/16 07:00 15:00 23:00 07:00 15:00 23:00 Intake Total 600 ml 596 ml 960 ml 360 ml Output Total 1200 ml 1000 ml Balance -600 ml 596 ml -40 ml 360 ml Intake Oral 600 ml 960 ml 360 ml IV Total 596 ml Output Urine Total 1200 ml 1000 ml # Voids 5 # Bowel Movements 0 1 (Brennen Banuelos MD R2) Result Diagram: 11/26/16 0550 11/25/16 0715 Objective Remarks GENERAL: NAD SKIN: Warm and dry. HEAD: Normocephalic. EYES: EOMI. No scleral icterus. No injection. NECK: Supple, trachea midline. CARDIOVASCULAR: Regular rate and rhythm without murmurs, gallops, or rubs. RESPIRATORY: Breath sounds clear and equal bilaterally. No crackles, wheezing, or rhonchi GASTROINTESTINAL: Abdomen soft, nontender, nondistended. MUSCULOSKELETAL: No cyanosis, or edema. (Brennen Banuelos MD R2) A/P Assessment and Plan Very pleasant 31 year old man admitted for management of malaria. Discharge Planning Anticipate discharge home today to complete course of PO antibiotics. Advised and will arrange appropriate outpatient f/u with a PCP. (Brennen Banuelos MD R2) Attending Attestation Patient seen and examined. Case reviewed and discussed with the resident team. Agree with plan of care as discussed with me and documented in the resident note. Patient is clinically much better except still having this cough that is slightly increased. Tmax in the last 24 hours noted to 100.7 but WBC is normal. CXR pending today. If CXR negative anticipate dc today as long as we can arrange for him to get his medication and some fu as an outpatient as he is uninsured. He can be seen in the resident clinic next week for a one-time hospital fu to ensure he is continuing to improve. The resident team will reach out to case management for assistance with arranging for coverage for his medications. ID has plan for fu once final identification of the malarial species is back from the CDC. (Lizzeth Reyes MD) Problem List: (1) Malaria ICD Codes: B54 - Unspecified malaria Status: Acute Plan: Patient found to be positive for malaria on blood smear ID following - Continue Doxycycline 100 mg po q12h (started 11/24 - stop date per ID on 12/01 ) - Continue Quinine 324 mg 2 capsules po TID (started 11/25 - stop date per ID ) Patient received Plaquenil 800 mg po x1 dose and 400 mg po x1 dose on 11/23 Further ID of malaria species to follow (2) Thrombocytopenia ICD Codes: D69.6 - Thrombocytopenia, unspecified Status: Acute Plan: Initially 56,000 on admission, improving trending up to 132,000 - Continue to monitor (3) Anemia ICD Codes: D64.9 - Anemia, unspecified Status: Acute Plan: Normocytic Anemia, Hgb on admission 12.1, currently stable Continue to monitor (4) Pruritus ICD Codes: L29.9 - Pruritus, unspecified Status: Acute Plan: Started 11/24, patient explains diffuse itching, no rash noted Likely secondary to hydroxychloroquine treatment IV Benadryl prn (5) Cough ICD Codes: R05 - Cough Status: Acute Plan: Lungs CTAB Possibly secondary to hydroxychloroquine treatment Continue Robitussin AC prn F/u CXR today due to cough (6) Headache ICD Codes: R51 - Headache Status: Acute Plan: Will try Fioricet 1 tab po q6h prn (7) Nutrition, metabolism, and development symptoms ICD Codes: R63.8 - Other symptoms and signs concerning food and fluid intake Plan: Fluids: none Electrolytes: continue to monitor Diet: Regular DVT ppx: not indicated, ambulatory (Brennen Banuelos MD R2) Brennen Banuelos MD R2 Nov 26, 2016 09:46 Lizzeth Reyes MD Nov 26, 2016 14:18
--- NOTE | 2016-11-26 10:29 | HHI.IDPN ---
Subjective Subjective Remarks Patient is a 31-year-old male, originally from [facility], has been living here in the [facility] in the last 8 years, recently travel to [facility] and stayed there for about a 5 weeks. He returned November 13, and around November 26 started having problem with headaches, fevers, myalgias. However prior to that he was ready having problem with very poor appetite, and just feeling weak. He would occasionally get some chills. Patient on his visit did not take any prophylactic medication. He has visited [place] probably 2 or 3 times since he has been a resident of the [facility]. He called his father who is a practicing physician in [facility], and the patient was instructed to go to the hospital for further evaluation and treatment. He had a 102.9 temperature on presentation. He had some pancytopenia when he presented. His LFTs did not show any elevated LFTs, and his creatinine is normal. The thin malaria smear of his blood came back positive for malaria, ring forms. The thick smear is still pending. Patient states his headache is a little bit better. He has been afebrile. WBCs little bit better. His platelet count had increased from 59 to 70. He has some mild coughing. Denies any shortness of breath or chest pain. Denies any nausea or vomiting, abdominal pain, urinary complaints, hematuria. Patient has received 2 doses of Plaquenil. Infectious disease consultation has been requested to evaluate the patient. Notes reviewed Low grade temps C/O increased cough since last night Some increased REYES when he coughs, and some pain in upper chest when he coughs No complaints with the malaria meds Antibiotics Quinine Doxycycline Lines PIV Past Medical History Unremarkable Allergies: Coded Allergies: No Known Allergies (Unverified , 11/23/16) Objective . Vital Signs Date Time Temp Pulse Resp B/P (MAP) Pulse Ox O2 Delivery O2 Flow Rate FiO2 11/26/16 08:02 99.3 65 16 108/64 (79) 98 11/26/16 06:25 99.7 63 18 117/73 (88) 99 11/26/16 00:13 100.7 76 19 126/77 (93) 97 11/25/16 22:00 Room Air 11/25/16 20:25 99.2 68 19 138/87 (104) 99 11/25/16 16:00 98.4 79 18 130/76 (94) 98 11/25/16 12:00 98.4 84 18 131/64 (86) 96 . Laboratory Tests Test 11/25/16 07:15 11/26/16 05:50 White Blood Count 5.0 TH/MM3 8.2 TH/MM3 Red Blood Count 3.59 MIL/MM3 3.48 MIL/MM3 Hemoglobin 10.6 GM/DL 10.3 GM/DL Hematocrit 32.4 % 31.1 % Mean Corpuscular Volume 90.1 FL 89.3 FL Mean Corpuscular Hemoglobin 29.4 PG 29.7 PG Mean Corpuscular Hemoglobin Concent 32.6 % 33.3 % Red Cell Distribution Width 14.2 % 14.4 % Platelet Count 87 TH/MM3 132 TH/MM3 Mean Platelet Volume 10.6 FL 10.6 FL CBC Comment AUTO DIFF Differential Total Cells Counted 100 Neutrophils % (Manual) 42 % Band Neutrophils % 3 % Lymphocytes % 31 % Monocytes % 22 % Eosinophils % 2 % Neutrophils # (Manual) 2.3 TH/MM3 Differential Comment FINAL DIFF MANUAL Atypical Lymphocytes % Platelet Estimate LOW Platelet Morphology Comment ENLARGED Ovalocytes 1+ Laboratory Tests Test 11/24/16 15:20 11/25/16 07:15 Lactic Acid Level 1.6 mmol/L Blood Urea Nitrogen 9 MG/DL Creatinine 0.66 MG/DL Random Glucose 87 MG/DL Total Protein 6.6 GM/DL Albumin 3.1 GM/DL Calcium Level 8.8 MG/DL Alkaline Phosphatase 27 U/L Aspartate Amino Transf (AST/SGOT) 13 U/L Alanine Aminotransferase (ALT/SGPT) 17 U/L Total Bilirubin 0.4 MG/DL Sodium Level 141 MEQ/L Potassium Level 4.1 MEQ/L Chloride Level 108 MEQ/L Carbon Dioxide Level 26.0 MEQ/L Anion Gap 7 MEQ/L Estimat Glomerular Filtration Rate 173 ML/MIN Microbiology Date/Time Source Procedure Growth Status 11/23/16 13:10 Blood Peripheral Aerobic Blood Culture - Preliminary NO GROWTH IN 2 DAYS Resulted 11/23/16 13:10 Blood Peripheral Anaerobic Blood Culture - Preliminary NO GROWTH IN 2 DAYS Resulted 11/23/16 13:05 Blood Peripheral Malaria Smear (JANNA) - Preliminary Positive For Malaria Resulted 11/23/16 13:05 Blood Peripheral Aerobic Blood Culture - Preliminary NO GROWTH IN 2 DAYS Resulted 11/23/16 13:05 Blood Peripheral Anaerobic Blood Culture - Preliminary NO GROWTH IN 2 DAYS Resulted 11/23/16 14:00 Nasal Washing Influenza Types A,B Antigen (JANNA) - Final NEGATIVE FOR FLU A AND B ANTIGEN.... Complete Imaging Chest X-Ray 11/23/16 1247 Signed Impressions: Service Date/Time: Wednesday, November 23, 2016 13:32 - CONCLUSION: 1. No acute cardiopulmonary disease. Brice Ruiz MD Physical Exam GENERAL: awake and alert, not in respiratory distress. He does not look toxic appearing SKIN: Warm and dry. No generalized rash, no ecchymoses and no evidence of embolic lesions. HEAD: Atraumatic. Normocephalic. No temporal wasting, or tenderness. EYES: Universal conjunctiva. No petechia or hemorrhage. Pupils equal, round and reactive to light. Extraocular movements full and intact. No scleral icterus. No injection or drainage. EARS, NOSE AND THROAT: Nose without bleeding or purulent nasal discharge. No sinus tenderness. Mucous membranes pink and moist. No oral lesions noted. NECK: Trachea midline. Supple and not tender, no meningeal signs CARDIOVASCULAR: Regular rate and rhythm. No murmurs, rubs or gallops heard RESPIRATORY: Clear to auscultation. Breath sounds equal bilaterally. No rales , wheezing or rhonchi ABDOMEN: Soft, non-tender, nondistended. Bowel sounds present and normoactive. No guarding. No rebound. No organomegaly. EXTREMITIES: No clubbing, cyanosis, or edema.No joint effusion, has good ROM. No calf tenderness. Well perfused and warm. NEUROLOGICAL: Awake and alert. Cranial nerves grossly intact. Motor grossly within normal limits. PSYCHIATRIC: Normal affect, calm and cooperative. LINE: No evidence of infection Assessment & Plan Remarks IMPRESSION Malaria from a returning traveler from [place] - has known Chloroquine resistant falciparum - has thrombocytopenia, anemia and neutropenia, better - path prob RECOMMENDATION Qunine plus Doxy - 3 days of Quinine, till 11/28 - Doxycycline x 7 days till 12/02 CXR to reevaluate his worsening cough If CXR ok, should be able to D/C today Ask CM to help with his malaria meds Needs to have followup - till we get the ID of malaria from the state - I spoke with [facility] and they will give me a call once ID from state comes back Explained plan to the patient Audelia Cerda MD Nov 26, 2016 10:29
[2016-11-26 10:51] VITALS: O2SAT 98
[2016-11-26 11:30] VITALS: BP 134/70; PULSE 70; RESP 14; TEMP 99; O2SAT 100
[2016-11-26 12:02] VITALS: BP 108/64; PULSE 65; RESP 16; TEMP 99.3; O2SAT 98
[2016-11-26] MEDS ORDERED: ACETAMIN 325 MG/BUTALBITAL 50 MG/CAFFEINE 40 MG TAB PO PRN (13:30)
[2016-11-26] MEDS ORDERED: Non-Formulary Drug PO (14:43)
[2016-11-26] MEDS ORDERED: DOXY100T PO (14:43)
[2016-11-26] MEDS ORDERED: BUTATAB6 PO (14:43)
--- NOTE | 2016-11-26 14:48 | HHI.DCPOC ---
Discharge Care Plan Goals to Promote Your Health To maintain your health at the optimal level, please follow up with a primary care doctor within 1 week after hospital discharge. You may follow up at the [facility] located at the [address] [place] [address] [facility] Directions to Meet Your Goals Take your medications as prescribed Follow your dietary instruction Follow activity as directed Keep your appointments as scheduled Take your immunizations and boosters as scheduled If your symptoms worsen call your PCP, if no PCP go to Urgent Care Center or Emergency Room Smoking is Dangerous to Your Health. Avoid second hand smoke Call the 24-hour hour crisis hotline for domestic abuse at Brennen Banuelos MD R2 Nov 26, 2016 14:48
[2016-11-26] MEDS ORDERED: QUIN324C2 PO (14:59)
--- NOTE | 2016-11-26 15:00 | RADRPT ---
EXAM DATE/TIME: 11/26/2016 13:46 [facility] COMPARISON: No previous studies available for comparison. INDICATIONS : Cough. MEDICAL HISTORY : None. SURGICAL HISTORY : None. ENCOUNTER: Initial ACUITY: 1 week PAIN SCORE: 0/10 LOCATION: Bilateral chest FINDINGS: PA and lateral views of the chest demonstrate the lungs to be symmetrically aerated without evidence of mass, infiltrate or effusion. The cardiomediastinal contours are unremarkable. Osseous structure s are intact. CONCLUSION: No acute disease. Swapnil Ruiz MD FACR on November 26, 2016 at 14:59 Board Certified Radiologist. This report was verified electronically.
--- NOTE | 2016-11-26 16:41 | HHI.DS ---
Discharge Summary Admission Date Nov 23, 2016 at 15:27 Discharge Date: Nov 26, 2016 Admitting Diagnosis malaria (1) Malaria Diagnosis: Principal Plan: Patient found to be positive for malaria on blood smear ID following - Continue Doxycycline 100 mg po q12h (started 11/24 - stop date per ID on 12/01 ) - Continue Quinine 324 mg 2 capsules po TID (started 11/25 - stop date per ID ) Patient received Plaquenil 800 mg po x1 dose and 400 mg po x1 dose on 11/23 Further ID of malaria species to follow ICD Codes: B54 - Unspecified malaria Status: Acute (2) Thrombocytopenia Diagnosis: Principal Plan: Initially 56,000 on admission, improving trending up to 132,000 - Continue to monitor ICD Codes: D69.6 - Thrombocytopenia, unspecified Status: Acute (3) Anemia Diagnosis: Secondary Plan: Normocytic Anemia, Hgb on admission 12.1, currently stable Continue to monitor ICD Codes: D64.9 - Anemia, unspecified Status: Acute (4) Pruritus Diagnosis: Secondary Plan: Started 11/24, patient explains diffuse itching, no rash noted Likely secondary to hydroxychloroquine treatment IV Benadryl prn ICD Codes: L29.9 - Pruritus, unspecified Status: Acute (5) Cough Diagnosis: Secondary Plan: Lungs CTAB Possibly secondary to hydroxychloroquine treatment Continue Robitussin AC prn F/u CXR today due to cough ICD Codes: R05 - Cough Status: Acute (6) Headache Diagnosis: Secondary Plan: Will try Fioricet 1 tab po q6h prn ICD Codes: R51 - Headache Status: Acute (7) Nutrition, metabolism, and development symptoms Diagnosis: Secondary Plan: Fluids: none Electrolytes: continue to monitor Diet: Regular DVT ppx: not indicated, ambulatory ICD Codes: R63.8 - Other symptoms and signs concerning food and fluid intake Consultants Infectious disease Brief History Placido Pelaez is a very pleasant 31 year old man who is previously healthy presenting with complaints of headaches, malaise, fatigue, intermittent subjective fevers and chills, and poor appetite. He states he recently returned from [place] about a week ago. He was there for about 5 weeks. He states about 3 days after returning he started noticing his symptoms. Overall his symptoms have not improved. He discussed his symptoms with his father who is a physician who said he might have malaria and recommended he be evaluated for this. He is found to be positive for malaria on a blood smear. He otherwise denies chest pain, SOB, cough, abdominal pain, any urinary symptoms. He states he is ambulating without difficulty. He denies having sickle cell disease or trait and denies a FH of this. CBC/BMP: 11/26/16 0550 11/25/16 0715 Significant Findings Laboratory Tests Test 11/24/16 05:50 11/24/16 15:20 11/25/16 07:15 11/25/16 17:34 Red Blood Count 3.84 MIL/MM3 (4.50-5.90) 3.59 MIL/MM3 (4.50-5.90) Hemoglobin 11.6 GM/DL (13.0-17.0) 10.6 GM/DL (13.0-17.0) Hematocrit 34.7 % (39.0-51.0) 32.4 % (39.0-51.0) Platelet Count 70 TH/MM3 (150-450) 87 TH/MM3 (150-450) Lymphocytes (%) (Auto) 53.6 % (9.0-44.0) Monocytes (%) (Auto) 25.6 % (0.0-8.0) Neutrophils # (Auto) 0.8 TH/MM3 (1.8-7.7) Monocytes # (Auto) 1.1 TH/MM3 (0-0.9) Lymphocytes % 56 % (9-44) Monocytes % 16 % (0-8) 22 % (0-8) Neutrophils # (Manual) 1.0 TH/MM3 (1.8-7.7) Platelet Estimate LOW (NORMAL) LOW (NORMAL) Platelet Morphology Comment ENLARGED (NORMAL) ENLARGED (NORMAL) Chloride Level 109 MEQ/L (98-107) 108 MEQ/L (98-107) Fibrinogen 383 mg/dL (227-377) Ovalocytes 1+ (NORMAL) Albumin 3.1 GM/DL (3.4-5.0) Alkaline Phosphatase 27 U/L (45-117) Aspartate Amino Transf (AST/SGOT) 13 U/L (15-37) Test 11/26/16 05:50 Red Blood Count 3.48 MIL/MM3 (4.50-5.90) Hemoglobin 10.3 GM/DL (13.0-17.0) Hematocrit 31.1 % (39.0-51.0) Platelet Count 132 TH/MM3 (150-450) Imaging Chest x-ray 11/23: No acute cardiopulmonary disease Chest x-ray 11/26: No acute disease PE at Discharge GENERAL: NAD SKIN: Warm and dry. HEAD: Normocephalic. EYES: EOMI. No scleral icterus. No injection. NECK: Supple, trachea midline. CARDIOVASCULAR: Regular rate and rhythm without murmurs, gallops, or rubs. RESPIRATORY: Breath sounds clear and equal bilaterally. No crackles, wheezing, or rhonchi GASTROINTESTINAL: Abdomen soft, nontender, nondistended. MUSCULOSKELETAL: No cyanosis, or edema. Hospital Course Patient was given Plaquenil 800 mg po in the ED per discussion with ED physician with infectious disease. Infectious disease was consulted. Patient was continued with the Plaquenil 400 mg po 6 hours after first dose and switched to Quinine + Doxycycline per ID recommendations prior to next doses scheduled with Plaquenil. Patient felt much better day after admission with improvement of his fatigue, malaise, headaches. Thrombocytopenia improved platelets noted to be at 56,000 on admission up trended to 132,000 prior to discharge. DIC workup ordered per infectious disease was negative. Further ID of malaria species on malaria smear still to follow at the time of patient's discharge. Will follow-up with patient if a resistant strain is found to be growing. Advised patient to follow-up with a primary care physician or to follow -up at [facility] within one week after hospital discharge. Pt Condition on Discharge: Stable Discharge Disposition: Discharge Home Discharge Instructions DIET: Follow Instructions for: As Tolerated, No Restrictions Activities you can perform: Regular-No Restrictions Follow up Referrals: PCP Follow-up - 1 Week with Brennen Banuelos MD R2 New Medications: Quinine (Quinine) 324 Mg Cap 2 CAP PO TID, #14 CAP Fjkonkaqoa-Fywowrnovzlod-Gxfhyucb (Cabxofkhkl-Vspusyhrnbitn-Rpjouqkc) 50-325-40 Mg Tab 1 TAB PO Q6H PRN for HEADACHE, #14 TAB Do not exceed 6 tablets/day. Doxycycline Hyclate (Doxycycline Hyclate) 100 Mg Tab 100 MG PO Q12HR, #11 TAB Brennen Banuelos MD R2 Nov 26, 2016 16:41
== END 2016-11-26 16:26 | disposition home or self-care (01) | DRG 868 ==
LOC: NEPC 12:25 → NEDA 15:27 → N04A 17:32
PROVIDERS: ADMIT Family Medicine; ATTEND Family Medicine
DX: B54 Unspecified malaria (principal); D61.818 Other pancytopenia; E87.1 Hypo-osmolality and hyponatremia; L29.9 Pruritus, unspecified
CPT/HCPCS: 71010; 71020; 80048; 80053; 83605; 83735; 85007; 85027; 85379; 85384; 85610; 85730; 87015; 87040; 87207; 87804; 90686; 90732; 96360; 96361; J1200; J1650; J7030; Q2038

== ENCOUNTER 2016-12-03 16:21 | Emergency (ER) | payer SELFPAY ==
[~2016-12-03] VITALS: Ht 170.2 cm; Wt 59.0 kg
[2016-12-03 16:21] VITALS: BP 121/79; PULSE 69; RESP 16; TEMP 98.9; O2SAT 99
[~2016-12-03 16:21] MED LIST: BUTATAB6 PO; DOXY100T PO; QUIN324C2 PO
== END 2016-12-03 16:35 | disposition left against medical advice (07) ==
LOC: NED 16:21
DX: Z51.89 Encounter for other specified aftercare (principal); Z53.21 Procedure and treatment not carried out due to patient leaving prior to being seen by health care provider
CPT/HCPCS: 99281